=== PATIENT | female | born 1935 | race African-American/Black ===

== ENCOUNTER 2019-08-13 10:47 | Inpatient (IN) | payer MEDICAID ==
[~2019-08-13] VITALS: Ht 160 cm; Wt 68.0 kg
[2019-08-13 11:44] LABS: BASOPHILS % 0.5 % (0.0-2.0); EOSINOPHILS % 3.2 % (0.0-5.0); HEMATOCRIT. 35.9 % (36.0-48.0); HEMOGLOBIN. 12.4 g/dL (12.0-16.0); LYMPHOCYTES % 35.2 % (20.0-50.0); MEAN CORPUSCULAR HEMOGLOBIN 32.8 pg (28.0-32.0); MEAN CORPUSCULAR VOLUME 94.8 fL (81.0-99.0); MEAN PLATELET VOLUME 7.9 fl (7.4-10.4); MONOCYTES % 9.4 % (2.0-8.0); NEUTROPHILS % 51.7 % (40.0-76.0); PLATELET 197 x1000/uL (130-400); RED BLOOD CELL COUNT 3.78 mill/uL (4.2-5.4)
[2019-08-13 11:49] LABS: CHLORIDE 108 mEq/L (98-107)
[2019-08-13 11:52] LABS: PROTHROMBIN TIME 10.9 sec (9.6-11.0)
[2019-08-13] MEDS ORDERED: IOHEXOL-300 100 ML BOTTLE ONE ×2 (13:08→23:11)
[2019-08-13 13:29] LABS: CLARITY URINE CLEAR (CLEAR); COLOR URINE YELLOW (YELLOW); KETONES URINE NEGATIVE (NEGATIVE); LEUKOCYTE ESTERASE URINE NEGATIVE (NEGATIVE); NITRITE URINE NEGATIVE (NEGATIVE); OCCULT BLOOD URINE NEGATIVE (NEGATIVE); PH URINE 7.5 (4.5-8.0); PROTEIN URINE NEGATIVE (NEGATIVE); SPECIFIC GRAVITY URINE 1.008 (1.005-1.030); UROBILINOGEN URINE 0.2 E.U./dL (0.2-1.0)
[2019-08-13] MEDS ORDERED: SODIUM CHLORIDE 0.9% 500 ML IV ONE (13:47)
[2019-08-13] MEDS ORDERED: MORPHINE SULFATE 2 MG/ML CPJ (NOT FOR IM USE) IV ONE (14:00)
[2019-08-13 21:50] VITALS: BP 112/53
[2019-08-14] VITALS (7 sets, daily range): BP systolic 110–138; BP diastolic 53–66
[2019-08-14] MEDS ORDERED: HYDROCODONE/ACETAMINOPHEN 5/325MG TABLET PO PRN ×2 (01:00→18:45)
[2019-08-14] MEDS ORDERED: ACETAMINOPHEN 325MG TABLET PO PRN (01:00)
[2019-08-14] MEDS ORDERED: SIMV-46 PO (04:35)
[2019-08-14] MEDS ORDERED: FAMO-135 PO (04:35)
[2019-08-14 06:55] LABS: CREATINE KINASE MB FRACTION 2.6 ng/mL (0.5-3.6)
[2019-08-14 07:55] LABS: BASOPHILS % 0.3 % (0.0-2.0); EOSINOPHILS % 4.2 % (0.0-5.0); HEMOGLOBIN. 13.1 g/dL (12.0-16.0); LYMPHOCYTES % 47.3 % (20.0-50.0); MEAN CORPUSCULAR HEMOGLOBIN 32.8 pg (28.0-32.0); MEAN CORPUSCULAR VOLUME 95.3 fL (81.0-99.0); MEAN PLATELET VOLUME 9.1 fl (7.4-10.4); MONOCYTES % 8.9 % (2.0-8.0); NEUTROPHILS % 39.3 % (40.0-76.0); PLATELET 171 x1000/uL (130-400); RED BLOOD CELL COUNT 3.98 mill/uL (4.2-5.4)
[2019-08-14] MEDS ORDERED: PANTOPRAZOLE SODIUM 40 MG/VIAL IV SCH (09:00)
[2019-08-14] MEDS ORDERED: HEPARIN 5000 UNITS/ML VIAL SUBCUT SCH (09:00)
[2019-08-14 12:52] LABS: CREATINE KINASE 245 IU/L (26-192)
[2019-08-14 12:53] LABS: CREATINE KINASE MB FRACTION 4.2 ng/mL (0.5-3.6)
[2019-08-14] MEDS ORDERED: HYDR-4001 PO (13:35)
[2019-08-14] MEDS ORDERED: TOPUD PO (13:35)
== END 2019-08-14 18:30 | disposition home or self-care (01) | DRG 347 ==
LOC: ER 10:47 → 6EST 16:16 → EDBEDREQTM 16:32 → EDBEDREQ 16:32 → ENRESERV 20:58
PROVIDERS: ADMIT Internal Medicine; ATTEND Internal Medicine
DX: M54.5 Low back pain (principal); N28.1 Cyst of kidney, acquired; E78.5 Hyperlipidemia, unspecified; K21.9 Gastro-esophageal reflux disease without esophagitis; R74.8 Abnormal levels of other serum enzymes; R10.9 Unspecified abdominal pain; Z87.442 Personal history of urinary calculi; Z88.8 Allergy status to other drugs, medicaments and biological substances; Z88.6 Allergy status to analgesic agent
CPT/HCPCS: 36415; 71045; 74177; 80048; 80053; 81003; 82550; 82553; 84484; 85025; 93005; 99285; C9113; J1644; J2270; J7030; Q9967

== ENCOUNTER 2019-11-10 12:54 | Emergency (ER) | payer MEDICAID ==
[~2019-11-10] VITALS: Ht 160 cm; Wt 63.5 kg
[~2019-11-10 12:54] MED LIST: FAMO-135 PO; HYDR-4001 PO; SIMV-46 PO; TOPUD PO
[2019-11-10] MEDS ORDERED: ACETAMINOPHEN 325MG TABLET PO ONE (14:15)
[2019-11-10] MEDS ORDERED: PROCHLORPERAZINE 10MG/2ML VIAL IV ONE (14:45)
[2019-11-10] MEDS ORDERED: DIPHENHYDRAMINE 50MG/ML VIAL IV ONE (14:45)
[2019-11-10 17:15] LABS: CHLORIDE 108 mEq/L (98-107)
[2019-11-10 17:16] LABS: BASOPHILS % 0.4 % (0.0-2.0); HEMATOCRIT. 37.1 % (36.0-48.0); HEMOGLOBIN. 12.4 g/dL (12.0-16.0); LYMPHOCYTES % 50.8 % (20.0-50.0); MEAN CORPUSCULAR HEMOGLOBIN 31.5 pg (28.0-32.0); MEAN CORPUSCULAR VOLUME 94.5 fL (81.0-99.0); MEAN PLATELET VOLUME 8.9 fl (7.4-10.4); NEUTROPHILS % 36.8 % (40.0-76.0); PLATELET 197 x1000/uL (130-400); RED BLOOD CELL COUNT 3.93 mill/uL (4.2-5.4)
[2019-11-10 17:27] LABS: CLARITY URINE CLEAR (CLEAR); COLOR URINE YELLOW (YELLOW); KETONES URINE NEGATIVE (NEGATIVE); LEUKOCYTE ESTERASE URINE 1+ (NEGATIVE); NITRITE URINE NEGATIVE (NEGATIVE); OCCULT BLOOD URINE NEGATIVE (NEGATIVE); PH URINE 8.5 (4.5-8.0); PROTEIN URINE NEGATIVE (NEGATIVE); SPECIFIC GRAVITY URINE 1.004 (1.005-1.030); UROBILINOGEN URINE 0.2 E.U./dL (0.2-1.0)
[2019-11-10 18:47] VITALS: BP 138/66
== END 2019-11-10 18:49 | disposition home or self-care (01) ==
LOC: ER 12:54
DX: R51 Headache (principal); K21.9 Gastro-esophageal reflux disease without esophagitis; Z88.6 Allergy status to analgesic agent; Z88.8 Allergy status to other drugs, medicaments and biological substances
CPT/HCPCS: 36415; 70450; 70544; 70553; 71045; 80053; 81003; 85025; 85651; 93005; 96374; 96375; 99285; J0780; J1200

== ENCOUNTER 2023-10-10 13:42 | Inpatient (IN) | payer MEDICAID, OTHER ==
[~2023-10-10] VITALS: Ht 160 cm; Wt 63.5 kg
[2023-10-10] MEDS: SODIUM CHLORIDE 0.9% 1,000 ML IV ONE (14:45)
[2023-10-10 14:52] LABS: BASOPHILS % 0.5 % (0.0-2.0); EOSINOPHILS % 2.2 % (0.0-5.0); HEMATOCRIT. 36.3 % (36.0-48.0); LYMPHOCYTES % 41.2 % (20.0-50.0); MEAN CORPUSCULAR HEMOGLOBIN 31.4 pg (28.0-32.0); MEAN CORPUSCULAR HGB CONC 33.1 g/dL (31.0-37.0); MEAN PLATELET VOLUME 7.6 fl (7.4-10.4); MONOCYTES % 7.4 % (2.0-8.0); NEUTROPHILS % 48.7 % (40.0-76.0); PLATELET 218 x1000/uL (130-400); RED BLOOD CELL COUNT 3.82 mill/uL (4.2-5.4); RED CELL DISTRIBUTION WIDTH 14.2 % (11.6-14.6); WHITE BLOOD COUNT 6.3 x1000/uL (4.5-11.0)
[2023-10-10 14:53] LABS: CHLORIDE 103 mEq/L (98-107); POTASSIUM 3.7 mEq/L (3.5-5.1); SODIUM 139 mEq/L (136-145)
[2023-10-10 14:54] LABS: CALCIUM 10.4 mg/dL (8.7-10.4); CARBON DIOXIDE 31 mEq/L (21-32)
[2023-10-10 14:59] LABS: AMMONIA < 17 uMol/L (<32); CREATININE 0.9 mg/dL (0.6-1.0); GLUCOSE 145 mg/dL (70-105); PROTHROMBIN TIME 11.4 sec (9.6-11.0); UREA NITROGEN BLOOD 11 mg/dL (9-23)
[2023-10-10 15:01] LABS: ACETAMINOPHEN < 2 ug/mL (10-30); ALANINE AMINOTRANSFERASE 17 IU/L (10-49); ALBUMIN 4.7 g/dL (3.2-4.8); ASPARTATE AMINOTRANSFERASE 29 IU/L (<34); BILIRUBIN DIRECT 0.1 mg/dL (<=3.0); BILIRUBIN TOTAL 0.6 mg/dL (0.1-1.0); PROTEIN TOTAL 7.8 g/dL (6.0-8.3)
[2023-10-10 15:10] LABS: ETHANOL BLOOD < 10 mg/dL (<10); TROPONIN I HIGH SENSITIVITY < 4 ng/L (3.0-34)
[2023-10-10] MEDS ORDERED: MAGNESIUM/ALUMINUM HYDROXIDE/SIMETHICONE 30ML UDC PO PRN (16:45)
[2023-10-10] MEDS ORDERED: DOCUSATE SODIUM 100MG CAPSULE PO PRN (16:45)
[2023-10-10] MEDS ORDERED: GUAIFENESIN 200MG/10ML SUGAR FREE UDC PO PRN (16:45)
[2023-10-10] MEDS ORDERED: ACETAMINOPHEN 325MG TABLET PO PRN (16:45)
[2023-10-10] MEDS ORDERED: ONDANSETRON HCL 4MG/2ML INJ IV PRN (16:45)
[2023-10-10 16:52] LABS: CLARITY URINE CLEAR (CLEAR); COLOR URINE YELLOW (YELLOW); GLUCOSE URINE NEGATIVE (NEGATIVE); KETONES URINE NEGATIVE (NEGATIVE); LEUKOCYTE ESTERASE URINE 1+ (NEGATIVE); NITRITE URINE NEGATIVE (NEGATIVE); OCCULT BLOOD URINE NEGATIVE (NEGATIVE); PH URINE 7.5 (4.5-8.0); PROTEIN URINE NEGATIVE (NEGATIVE); SPECIFIC GRAVITY URINE 1.007 (1.005-1.030); UROBILINOGEN URINE 0.2 E.U./dL (0.2-1.0)
[2023-10-10] MEDS ORDERED: HALOPERIDOL LACTATE 5MG/ML VIAL IM PRN (17:00)
[2023-10-10] MEDS ORDERED: IPRATROPIUM/ALBUTEROL 0.5-3(2.5)MG/3ML NEB NEB PRN (17:00)
[2023-10-10 17:05] LABS: *AMPHETAMINES SCREEN URINE NEGATIVE (NEGATIVE); *BARBITURATES SCREEN URINE NEGATIVE (NEGATIVE); *BENZODIAZEPINES SCREEN URINE NEGATIVE (NEGATIVE); *COCAINE SCREEN URINE NEGATIVE (NEGATIVE); CANNABINOID URINE SCREEN NEGATIVE (NEGATIVE); ECSTASY MDMA SCREEN URINE NEGATIVE (NEGATIVE); METHADONE URINE SCREEN NEGATIVE (NEGATIVE); OPIATES URINE SCREEN NEGATIVE (NEGATIVE); PHENCYCLIDINE URINE SCREEN NEGATIVE (NEGATIVE)
[2023-10-10 17:11] LABS: BACTERIA URINE TRACE; RBC URINE 0-2 /hpf (0-2); SQUAMOUS EPITHELIAL CELL URINE 1+ /lpf (RARE/1+)
[2023-10-10] MEDS: CEFTRIAXONE 1GM/50ML 50 ML IV ONE (18:22)
[2023-10-10 19:07] LABS: IRON 69 ug/dL (50-170)
[2023-10-10 19:08] LABS: TRIGLYCERIDE 122 mg/dL (0-150)
[2023-10-10 19:09] LABS: LDL CHOLESTEROL 143 mg/dL (5-100)
[2023-10-10 19:10] LABS: CHOLESTEROL 211 mg/dL (<200); HDL CHOLESTEROL 52 mg/dL (>65); TOTAL IRON BINDING CAPACITY 278 ug/dl (250-425)
[2023-10-10 19:13] LABS: T4 FREE 1.06 ng/dL (0.89-1.76)
[2023-10-10 19:45] LABS: FOLIC ACID (FOLATE) SERUM > 20.00 ng/mL (>5.38); VITAMIN B12 SERUM 1601 pg/mL (211-911)
[2023-10-10] MEDS ORDERED: ZOLPIDEM TARTRATE 5MG TABLET PO PRN (20:00)
[2023-10-10] MEDS: ACETAMINOPHEN 325MG TABLET PO PRN (21:09)
[2023-10-10] MEDS: FAMOTIDINE 20MG TABLET PO SCH (21:09)
[2023-10-10] MEDS: ASCORBIC ACID 500 MG TABLET PO SCH (21:12)
[2023-10-10] MEDS: CLONIDINE 0.1MG TABLET PO PRN (23:50)
[2023-10-10 23:56] LABS: CREATINE KINASE MB FRACTION 2.4 ng/mL (0.5-3.6); TROPONIN I HIGH SENSITIVITY 5 ng/L (3.0-34)
[2023-10-10 23:58] LABS: CREATINE KINASE 224 IU/L (34-145)
[2023-10-11 07:22] LABS: BASOPHILS % 0.7 % (0.0-2.0); EOSINOPHILS % 2.8 % (0.0-5.0); MEAN CORPUSCULAR HEMOGLOBIN 31.6 pg (28.0-32.0); MEAN CORPUSCULAR HGB CONC 33.3 g/dL (31.0-37.0); MONOCYTES % 7.6 % (2.0-8.0); NEUTROPHILS % 37.9 % (40.0-76.0); RED BLOOD CELL COUNT 3.79 mill/uL (4.2-5.4); RED CELL DISTRIBUTION WIDTH 14.1 % (11.6-14.6)
[2023-10-11 07:26] LABS: CHLORIDE 107 mEq/L (98-107); POTASSIUM 4.1 mEq/L (3.5-5.1); SODIUM 141 mEq/L (136-145)
[2023-10-11 07:29] LABS: CALCIUM 9.9 mg/dL (8.7-10.4); CARBON DIOXIDE 28 mEq/L (21-32)
[2023-10-11 07:32] LABS: CREATINE KINASE MB FRACTION 2.6 ng/mL (0.5-3.6)
[2023-10-11 07:34] LABS: CREATININE 0.9 mg/dL (0.6-1.0); GLUCOSE 91 mg/dL (70-105); UREA NITROGEN BLOOD 9 mg/dL (9-23)
[2023-10-11 07:35] LABS: ALANINE AMINOTRANSFERASE 17 IU/L (10-49); ALBUMIN 4.4 g/dL (3.2-4.8)
[2023-10-11 07:36] LABS: ASPARTATE AMINOTRANSFERASE 31 IU/L (<34); BILIRUBIN TOTAL 0.7 mg/dL (0.1-1.0); PHOSPHORUS 3.5 mg/dL (2.5-4.9); PROTEIN TOTAL 7.4 g/dL (6.0-8.3)
[2023-10-11 07:37] LABS: DIFFERENTIAL COMMENT 1
[2023-10-11] MEDS: ZINC SULFATE 220 MG ( 50 ) CAPSULE PO SCH (10:14)
[2023-10-11] MEDS: ENOXAPARIN 40MG/0.4ML SYR SUBCUT SCH (10:16)
[2023-10-11 12:00] VITALS: BP 139/63; PULSE 77; RESP 20; TEMP 36.28068; TEMP 36.3068; O2SAT 97
[2023-10-11] MEDS ORDERED: CEFTRIAXONE 1GM/50ML 50 ML IV SCH (18:00)
[2023-10-11 20:00] VITALS: BP 137/67; PULSE 80; RESP 18; TEMP 36.55848; O2SAT 100
[2023-10-11] MEDS: CEFTRIAXONE 1GM/50ML 50ML IV SCH (21:16)
[2023-10-12] VITALS: BP 138/72; PULSE 89; RESP 18; TEMP 36.9474; O2SAT 98
[2023-10-12 04:00] VITALS: BP 110/84; PULSE 97; RESP 18; TEMP 36.89184; O2SAT 100
[2023-10-12] MEDS: FAMOTIDINE 20MG TABLET PO SCH (09:45)
[2023-10-12 13:01] VITALS: BP 157/71; PULSE 82; TEMP 97.6; O2SAT 99
== END 2023-10-12 14:11 | disposition home or self-care (01) | DRG 52 ==
LOC: ER 13:42 → 5WST 16:12 → EDBEDREQ 16:17 → 6EST 10-11 12:16
PROVIDERS: ADMIT Internal Medicine; ATTEND Internal Medicine
DX: G92.8 Other toxic encephalopathy (principal); F03.90 Unspecified dementia, unspecified severity, without behavioral disturbance, psychotic disturbance, mood disturbance, and anxiety; E78.00 Pure hypercholesterolemia, unspecified; N39.0 Urinary tract infection, site not specified; K21.9 Gastro-esophageal reflux disease without esophagitis; I10 Essential (primary) hypertension; Z87.442 Personal history of urinary calculi; Z79.899 Other long term (current) drug therapy
CPT/HCPCS: 36415; 71045; 80048; 80053; 80061; 80076; 80305; 80307; 80320; 80329; 81003; 82140; 82550; 82553; 82607; 82746; 83036; 83540; 83550; 83605; 83735; 84100; 84145; 84439; 84443; 84484; 85025; 93005; 93306; 93970; 99285; J0696; J1650; J7030; G0480